=== PATIENT | female | born 1965 | race African-American/Black ===

== ENCOUNTER 2023-04-02 19:41 | Emergency (ER) | payer BC ==
[2023-04-02 19:57] VITALS: BP 144/69; PULSE 65; RESP 18; TEMP 98; BMI 22.3
[2023-04-02] MEDS ORDERED: LIDOCAINE 5% TOPICAL PATCH ONE (20:59)
[2023-04-02] MEDS ORDERED: KETOROLAC TROMETHAMINE 30 MG/1 ML VIAL ONE (20:59)
[2023-04-02] MEDS ORDERED: LIDOCAINE 5% TOPICAL PATCH TP ONE (21:00)
[2023-04-02] MEDS ORDERED: ACETAMINOPHEN 325 MG TABLET (FP) PO ONE (21:00)
[2023-04-02] MEDS ORDERED: KETOROLAC TROMETHAMINE 30 MG/1 ML VIAL IM ONE (21:00)
[2023-04-02] MEDS ORDERED: ACETAMINOPHEN 325 MG TABLET (FP) ONE (21:02)
[2023-04-02] MEDS ORDERED: LIDOCAINE PATCH REMOVAL MC ONE (22:00)
== END 2023-04-02 22:17 | disposition home or self-care (01) ==
LOC: JERFT 19:41 → JER 19:41 → JERFT 22:17
PROC: 3E0233Z Introduction of Anti-inflammatory into Muscle, Percutaneous Approach (ICD-10-PCS; principal; 2023-04-02)
DX: M25.511 Pain in right shoulder (principal)
CPT/HCPCS: 73030-TC-RT-FY; 99284-25